=== PATIENT | male | born 1980 | race Caucasian/White ===

== ENCOUNTER 2018-02-06 06:58 | Outpatient (CLI) | payer BC ==
--- NOTE | 2018-02-06 08:45 | ULT ---
ABDOMINAL ULTRASUND: HISTORY: Elevated liver function tests. Hepatitis. FINDINGS: The patient is post cholecystectomy. The liver is echogenic consistent with medical hepatic disease and/or fatty infiltration. Liver size is prominent measuring up to 18 cm. The common bile duct is within normal range. The visualized ab dominal aorta and IVC appear unremarkable. Pancreas is partially imaged and appears unremarkable as visualized. Both kidneys are imaged and appear unremarkable. IMPRESSION: 1. Borderline hepatomegaly. 2. Increased hepatic echogenicity. 3. Post cholecystectomy. POS: [facility]
== END 2018-02-06 06:59 | disposition home or self-care (01) ==
LOC: SCSULT 06:58
PROVIDERS: ATTEND Family Medicine
DX: K75.9 Inflammatory liver disease, unspecified (principal); R11.2 Nausea with vomiting, unspecified; E78.1 Pure hyperglyceridemia; R79.89 Other specified abnormal findings of blood chemistry; R73.09 Other abnormal glucose; K76.9 Liver disease, unspecified; Z90.49 Acquired absence of other specified parts of digestive tract; R16.0 Hepatomegaly, not elsewhere classified
CPT/HCPCS: 76700

== ENCOUNTER 2022-01-26 12:07 | Inpatient (IN) | payer OTHER ==
[~2022-01-26 12:07] MED LIST: Iopamidol-370 76% 500 ML 1 ML ONE
[2022-01-26 12:53] LABS: #Eosinphils 0.1 thou/uL (0.0-0.7); #Lymphocytes 2.6 thou/uL (1.20-3.40); #Monocytes 1.4 thou/uL (0.11-0.59); #Neutrophils 9.8 thou/uL (1.40-6.50); %Basophils 0.1 % (0.0-1.0); %Eosinophils 0.4 % (0.0-10.0); %Lymphocytes 18.8 % (21.0-51.0); %Monocytes 9.8 % (0.0-10.0); %Neutrophils 70.9 % (42.0-75.0); Hemoglobin 12.1 g/dL (14.0-18.0); Mean Corpuscular HGB CONC 32.3 g/dL (32.0-36.0); Mean Corpuscular Hemoglobin 27.2 pg (27.0-31.0); Mean Corpuscular Volume 84.2 fL (78.0-98.0); Mean Platelet Volume 7.5 fL (7.4-10.4); Platelet Count 616 thou/uL (130-400); RBC Distribution Width 12.1 % (11.5-14.5); Red Blood Cell (RBC) Count 4.44 mill/uL (4.70-6.10); White Blood Cell (WBC) Count 13.9 thou/uL (4.8-10.8)
[2022-01-26] MEDS ORDERED: Acetaminophen 500 MG TAB ONE (13:07)
[2022-01-26 13:15] LABS: ALT (SGPT) 37 U/L (8-55); AST (SGOT) 41 U/L (5-34); Albumin 3.6 g/dL (3.5-5.0); Alkaline Phosphatase 119 U/L (40-110); Anion Gap 17 mmol/L (10-20); BUN (Urea Nitrogen) 8 mg/dL (8.9-20.6); Bilirubin, Total 0.6 mg/dL (0.2-1.2); Calc. Creatinine Clearance 0 mL/min (70-130); Calcium 9.4 mg/dL (7.8-10.44); Carbon Dioxide 22 mmol/L (22-29); Chloride 100 mmol/L (98-107); Estimated GFR 111; Globulin 4.1 g/dL (2.4-3.5); Glucose 122 mg/dL (70-105); Potassium 3.6 mmol/L (3.5-5.1); Protein, Total 7.7 g/dL (6.0-8.3); Sodium 135 mmol/L (136-145)
[2022-01-26 14:09] LABS: SARS-CoV-2 NAA Rapid Test Not Detected (NotDetected)
[2022-01-26] MEDS ORDERED: Vancomycin 1 GM/200 ML BAG ONE (14:32)
[2022-01-26] MEDS ORDERED: Cefepime 2 GM VIAL ONE (14:32)
[2022-01-26 15:26] LABS: Bilirubin Negative (Negative); Blood, Urine Negative (Negative); Clarity Clear (Clear); Glucose, Urine (Dipstick) Normal (Negative); Ketone, Urine Negative (Negative); Leukocyte Negative Leu/uL (Negative); Nitrite Negative (Negative); Protein, Urine (Dipstick) 20 mg/dL (Neg-Trace)
[2022-01-26 15:31] LABS: Specific Gravity, Urine 1.054 (1.002-1.036)
[2022-01-26] MEDS ORDERED: Acetaminophen 500 MG TAB PO PRN (15:49)
[2022-01-26] MEDS ORDERED: traMADol HCl 50 MG TAB PO PRN (16:42)
[2022-01-26] MEDS ORDERED: Meropenem 1 GM in Sodium Chloride 0.9% 100 ML IVPB SCH (17:00)
[2022-01-26 17:50] VITALS: BMI 37.2
[2022-01-26] MEDS: Lactated Ringer's 1,000 ML IV SCH (17:58)
[2022-01-26] MEDS: Gabapentin 300 MG CAP PO SCH (21:04)
[2022-01-26] MEDS: Mirtazapine 30 MG TAB PO SCH (21:05)
[2022-01-26] MEDS: Enoxaparin Sodium 40 MG/0.4 ML SYRINGE SC SCH (21:05)
[2022-01-26] MEDS: Famotidine 20 MG TAB PO SCH (21:05)
[2022-01-26] MEDS ORDERED: Meropenem 2 GM in Sodium Chloride 0.9% 100 ML IVPB SCH (22:00)
[2022-01-27] MEDS: Meropenem 1 GM in Sodium Chloride 0.9% 100 ML IVPB SCH ×3 (00:32→18:16)
[2022-01-27] MEDS: Lactated Ringer's 1,000 ML IV SCH ×3 (03:13→23:09)
[2022-01-27] MEDS ORDERED: Bupivacaine/Epinephrine 0.25% 30 ML VIAL ONE (06:46)
[2022-01-27] MEDS ORDERED: Midazolam HCl 2 mg/2 ml Vial ONE (06:52)
[2022-01-27] MEDS ORDERED: fentaNYL Citrate/PF 100 MCG/2 ML SYRINGE ONE (06:52)
[2022-01-27] MEDS ORDERED: Rocuronium Bromide 10 MG/ML (10ML VIAL) ONE (07:33)
[2022-01-27] MEDS ORDERED: PROPOFOL 200 MG/20 ML VIAL ONE (07:33)
[2022-01-27] MEDS ORDERED: Succinylcholine 200 MG/10 ml SYRINGE FS ONE (07:33)
[2022-01-27] MEDS ORDERED: Glycopyrrolate 0.2 MG/ML 5 ML SYRINGE ONE (07:33)
[2022-01-27] MEDS ORDERED: Ondansetron PF 4 MG/2 ML Vial ONE (07:33)
[2022-01-27] MEDS ORDERED: Lidocaine 1% PF 5 ML VIAL ONE (07:33)
[2022-01-27] MEDS ORDERED: Dexamethasone 20 MG/5 ML VIAL ONE (07:33)
[2022-01-27] MEDS ORDERED: Neostigmine Methylsulfate 3 MG/3 ML SYRINGE ONE (07:33)
[2022-01-27] MEDS ORDERED: Gabapentin 300 MG CAP PO SCH (09:00)
[2022-01-27] MEDS ORDERED: SUGAMMADEX SODIUM 200 MG/2 ML VIAL ONE (11:40)
[2022-01-27] MEDS ORDERED: Fentanyl 100 MCG/2 ML VIAL ONE ×2 (12:02→13:14)
[2022-01-27] MEDS ORDERED: Ondansetron HCl/PF 4 MG/2 ML Vial IVP PRN (12:05)
[2022-01-27] MEDS ORDERED: Promethazine HCl 25 MG/ML VIAL IM PRN ×2 (12:05→12:32)
[2022-01-27] MEDS ORDERED: Promethazine HCl 25 MG/ML VIAL IVPB PRN (12:05)
[2022-01-27] MEDS ORDERED: Promethazine HCl 25 MG/ML VIAL ONE (12:09)
[2022-01-27] MEDS ORDERED: Ondansetron PF 4 MG/2 ML Vial IVP PRN ×2 (12:32→12:44)
[2022-01-27] MEDS ORDERED: fentaNYL Citrate/PF 2,000 MCG in Sodium Chloride 0.9% 60 ML IV PRN (12:32)
[2022-01-27] MEDS ORDERED: diphenhydrAMINE 25 MG CAP PO PRN (12:32)
[2022-01-27] MEDS ORDERED: Zolpidem Tartrate 5 MG TAB PO PRN (12:32)
[2022-01-27] MEDS ORDERED: diphenhydrAMINE 50 MG/ML VIAL IVP PRN (12:32)
[2022-01-27] MEDS ORDERED: diphenhydrAMINE 50 MG/ML VIAL IM PRN (12:32)
[2022-01-27] MEDS ORDERED: Naloxone HCl 0.4 mg/ml Vial IV PRN (12:32)
[2022-01-27] MEDS ORDERED: Fentanyl 100 MCG/2 ML VIAL SLOW IVP PRN (12:44)
[2022-01-27] MEDS ORDERED: Communication Order-Pharmacy FS SCH (12:45)
[2022-01-27 14:26] LABS: Hemoglobin 10.7 g/dL (14.0-18.0); Platelet Count 575 thou/uL (130-400)
[2022-01-27] MEDS: Escitalopram Oxalate 20 mg Tablet PO SCH (14:42)
[2022-01-27] MEDS: Famotidine 20 MG TAB PO SCH ×2 (14:42→20:58)
[2022-01-27] MEDS: Polyethylene Glycol 3350 17 GM Packet PO SCH (14:42)
[2022-01-27] MEDS: HYDROcodone/Acetaminophen 5/325 mg Tablet PO PRN (19:28)
[2022-01-27] MEDS: Gabapentin 300 MG CAP PO SCH (20:56)
[2022-01-27] MEDS: Mirtazapine 30 MG TAB PO SCH (20:56)
[2022-01-27] MEDS: Enoxaparin Sodium 40 MG/0.4 ML SYRINGE SC SCH (20:57)
[2022-01-28] MEDS: HYDROcodone/Acetaminophen 5/325 mg Tablet PO PRN ×5 (00:59→19:14)
[2022-01-28] MEDS: Meropenem 1 GM in Sodium Chloride 0.9% 100 ML IVPB SCH ×3 (01:18→19:15)
[2022-01-28 03:55] LABS: #Lymphocytes 2.2 thou/uL (1.20-3.40); #Monocytes 1.5 thou/uL (0.11-0.59); #Neutrophils 15.3 thou/uL (1.40-6.50); %Eosinophils 0.1 % (0.0-10.0); %Lymphocytes 11.7 % (21.0-51.0); %Monocytes 7.7 % (0.0-10.0); %Neutrophils 80.5 % (42.0-75.0); Hemoglobin 9.8 g/dL (14.0-18.0); Mean Corpuscular Hemoglobin 27.9 pg (27.0-31.0); Mean Platelet Volume 7.7 fL (7.4-10.4); Platelet Count 563 thou/uL (130-400); RBC Distribution Width 12.3 % (11.5-14.5); Red Blood Cell (RBC) Count 3.52 mill/uL (4.70-6.10)
[2022-01-28 04:14] LABS: Anion Gap 14 mmol/L (10-20); BUN (Urea Nitrogen) 8 mg/dL (8.9-20.6); Calc. Creatinine Clearance 274 mL/min (70-130); Calcium 8.7 mg/dL (7.8-10.44); Carbon Dioxide 24 mmol/L (22-29); Chloride 103 mmol/L (98-107); Estimated GFR 120; Glucose 135 mg/dL (70-105); Potassium 3.9 mmol/L (3.5-5.1); Sodium 137 mmol/L (136-145)
[2022-01-28] MEDS: Lactated Ringer's 1,000 ML IV SCH ×2 (06:18→11:21)
[2022-01-28] MEDS: Polyethylene Glycol 3350 17 GM Packet PO SCH (08:36)
[2022-01-28] MEDS: Famotidine 20 MG TAB PO SCH ×2 (08:37→20:30)
[2022-01-28] MEDS: Escitalopram Oxalate 20 mg Tablet PO SCH (08:37)
[2022-01-28] MEDS ORDERED: Vancomycin 1 GM in Premix Bag 1 BAG IVPB SCH ×2 (13:42→17:00)
[2022-01-28] MEDS: Gabapentin 300 MG CAP PO SCH (20:29)
[2022-01-28] MEDS: Mirtazapine 30 MG TAB PO SCH (20:30)
[2022-01-28] MEDS: Enoxaparin Sodium 40 MG/0.4 ML SYRINGE SC SCH (20:30)
[2022-01-29] MEDS: Meropenem 1 GM in Sodium Chloride 0.9% 100 ML IVPB SCH ×3 (00:29→18:19)
[2022-01-29] MEDS: VANCOMYCIN 2 GRAM/500 ML BAG 2 GM in Premix Bag 1 BAG IVPB SCH ×2 (04:20→10:58)
[2022-01-29] MEDS: Lactated Ringer's 1,000 ML IV SCH (06:17)
[2022-01-29] MEDS: Escitalopram Oxalate 20 mg Tablet PO SCH (09:33)
[2022-01-29] MEDS: Polyethylene Glycol 3350 17 GM Packet PO SCH (09:33)
[2022-01-29] MEDS: Famotidine 20 MG TAB PO SCH ×2 (09:33→21:53)
[2022-01-29 09:37] LABS: Band 2 % (5-11); Lymphocytes 12 % (21-51); MDiff Complete? YES; Mean Corpuscular HGB CONC 31.9 g/dL (32.0-36.0); Mean Corpuscular Hemoglobin 27.2 pg (27.0-31.0); Mean Corpuscular Volume 85.3 fL (78.0-98.0); Mean Platelet Volume 7.4 fL (7.4-10.4); Monocytes 4 % (0-10); Neutrophil 81 % (42-75); Platelet Count 558 thou/uL (130-400); Platelet Morphology Comment Appears Increased; RBC Distribution Width 12.4 % (11.5-14.5); RBC Morphology Normal; Reactive Lymphocytes 1 % (0-10); Red Blood Cell (RBC) Count 3.31 mill/uL (4.70-6.10); White Blood Cell (WBC) Count 15.1 thou/uL (4.8-10.8)
[2022-01-29] MEDS: Mirtazapine 30 MG TAB PO SCH (21:54)
[2022-01-29] MEDS: Gabapentin 300 MG CAP PO SCH (21:54)
[2022-01-29] MEDS: Enoxaparin Sodium 40 MG/0.4 ML SYRINGE SC SCH (21:54)
[2022-01-30] MEDS: Meropenem 1 GM in Sodium Chloride 0.9% 100 ML IVPB SCH ×3 (00:25→17:48)
[2022-01-30] MEDS: Lactated Ringer's 1,000 ML IV SCH ×2 (03:16→23:59)
[2022-01-30 06:03] LABS: #Basophils 0.1 thou/uL (0.0-0.2); #Eosinphils 0.3 thou/uL (0.0-0.7); #Lymphocytes 2.8 thou/uL (1.20-3.40); #Monocytes 1.2 thou/uL (0.11-0.59); #Neutrophils 10.1 thou/uL (1.40-6.50); %Basophils 0.4 % (0.0-1.0); %Eosinophils 1.9 % (0.0-10.0); %Lymphocytes 19.3 % (21.0-51.0); %Monocytes 8.5 % (0.0-10.0); Mean Corpuscular HGB CONC 32.3 g/dL (32.0-36.0); Mean Corpuscular Hemoglobin 27.8 pg (27.0-31.0); Mean Corpuscular Volume 86.1 fL (78.0-98.0); Mean Platelet Volume 7.5 fL (7.4-10.4); Platelet Count 528 thou/uL (130-400); RBC Distribution Width 12.4 % (11.5-14.5); Red Blood Cell (RBC) Count 3.23 mill/uL (4.70-6.10); White Blood Cell (WBC) Count 14.5 thou/uL (4.8-10.8)
[2022-01-30 06:27] LABS: Anion Gap 14 mmol/L (10-20); BUN (Urea Nitrogen) 7 mg/dL (8.9-20.6); Calc. Creatinine Clearance 294 mL/min (70-130); Calcium 8.6 mg/dL (7.8-10.44); Carbon Dioxide 28 mmol/L (22-29); Chloride 101 mmol/L (98-107); Estimated GFR 123; Glucose 106 mg/dL (70-105); Potassium 3.5 mmol/L (3.5-5.1); Sodium 139 mmol/L (136-145)
[2022-01-30] MEDS ORDERED: Potassium Chloride 20 MEQ TAB PO SCH (08:00)
[2022-01-30] MEDS: Famotidine 20 MG TAB PO SCH ×2 (08:34→21:35)
[2022-01-30] MEDS: Escitalopram Oxalate 20 mg Tablet PO SCH (08:35)
[2022-01-30] MEDS: Polyethylene Glycol 3350 17 GM Packet PO SCH (08:37)
[2022-01-30 09:43] LABS: Actual Bicarbonate (HCO3v) 22 mEq/L (22-28); Analyzer IN Cardio OR; Base Excess -3.6 mEq/L (-2.0 to +3.0); Calcium, Ionized (venous) 1.11 mmol/L (1.16-1.32); Chloride (VBG) 105 mmol/L (98-106); Hemoglobin (Hb) 11.4 g/dL (13.2-17.3); Potassium (VBG) 4.46 mmol/L (3.70-5.30); pH (venous) 7.34 (7.32-7.43)
[2022-01-30 09:43] LABS: Actual Bicarbonate (HCO3a) 20.6 mEq/L (22-28); Analyzer IN Cardio OR; CO2 Tension 35.4 mmHg (35.0-45.0); Calcium, Ionized (arterial) 1.08 mmol/L (1.12-1.30); Carboxyhemoglobin (COHb) 0.2 gm% (0.0-3.0); Hemoglobin (Hb) 10.3 g/dL (14.0-18.0); O2 Tension (PaO2), arterial 85.6 mmHg (80.0-100.0); Potassium - ABG Lab 4.12 mmol/L (3.70-5.30); pH, Arterial 7.38 (7.35-7.45)
[2022-01-30 09:45] LABS: Puncture Site Arterial Line
[2022-01-30] MEDS: HYDROcodone/Acetaminophen 5/325 mg Tablet PO PRN ×2 (12:52→17:47)
[2022-01-30] MEDS: Ferrous Sulfate 325 MG TAB PO SCH (17:47)
[2022-01-30] MEDS: Gabapentin 300 MG CAP PO SCH (21:34)
[2022-01-30] MEDS: Enoxaparin Sodium 40 MG/0.4 ML SYRINGE SC SCH (21:34)
[2022-01-30] MEDS: Mirtazapine 30 MG TAB PO SCH (21:35)
[2022-01-31] MEDS: Meropenem 1 GM in Sodium Chloride 0.9% 100 ML IVPB SCH (00:01)
[2022-01-31] MEDS: HYDROcodone/Acetaminophen 5/325 mg Tablet PO PRN ×4 (00:05→20:24)
[2022-01-31 05:37] LABS: #Eosinphils 0.4 thou/uL (0.0-0.7); #Lymphocytes 2.9 thou/uL (1.20-3.40); #Monocytes 1.1 thou/uL (0.11-0.59); %Basophils 0.3 % (0.0-1.0); %Eosinophils 3.8 % (0.0-10.0); %Lymphocytes 25.4 % (21.0-51.0); %Monocytes 9.7 % (0.0-10.0); %Neutrophils 60.9 % (42.0-75.0); Mean Corpuscular HGB CONC 31.7 g/dL (32.0-36.0); Mean Corpuscular Hemoglobin 27.6 pg (27.0-31.0); Mean Platelet Volume 7.5 fL (7.4-10.4); Platelet Count 549 thou/uL (130-400); RBC Distribution Width 12.6 % (11.5-14.5); Red Blood Cell (RBC) Count 3.63 mill/uL (4.70-6.10); White Blood Cell (WBC) Count 11.4 thou/uL (4.8-10.8)
[2022-01-31 05:57] LABS: Anion Gap 17 mmol/L (10-20); BUN (Urea Nitrogen) 9 mg/dL (8.9-20.6); Calc. Creatinine Clearance 311 mL/min (70-130); Calcium 8.9 mg/dL (7.8-10.44); Carbon Dioxide 24 mmol/L (22-29); Chloride 102 mmol/L (98-107); Estimated GFR 123; Glucose 90 mg/dL (70-105); Potassium 3.7 mmol/L (3.5-5.1); Sodium 139 mmol/L (136-145)
[2022-01-31] MEDS: Famotidine 20 MG TAB PO SCH ×2 (08:25→20:24)
[2022-01-31] MEDS: Ferrous Sulfate 325 MG TAB PO SCH ×2 (08:25→15:29)
[2022-01-31] MEDS: Polyethylene Glycol 3350 17 GM Packet PO SCH (08:25)
[2022-01-31] MEDS: metroNIDAZOLE 250 MG TAB PO SCH ×3 (08:25→20:24)
[2022-01-31] MEDS: Escitalopram Oxalate 20 mg Tablet PO SCH (08:25)
[2022-01-31] MEDS: Mirtazapine 30 MG TAB PO SCH (20:23)
[2022-01-31] MEDS: Enoxaparin Sodium 40 MG/0.4 ML SYRINGE SC SCH (20:23)
[2022-01-31] MEDS: Gabapentin 300 MG CAP PO SCH (20:24)
[2022-02-01] MEDS: HYDROcodone/Acetaminophen 5/325 mg Tablet PO PRN (05:24)
[2022-02-01 05:55] LABS: #Eosinphils 0.3 thou/uL (0.0-0.7); #Lymphocytes 2.6 thou/uL (1.20-3.40); #Monocytes 1.1 thou/uL (0.11-0.59); %Basophils 0.1 % (0.0-1.0); %Eosinophils 3.3 % (0.0-10.0); %Lymphocytes 25.7 % (21.0-51.0); %Monocytes 10.6 % (0.0-10.0); %Neutrophils 60.2 % (42.0-75.0); Hemoglobin 9.4 g/dL (14.0-18.0); Mean Corpuscular HGB CONC 31.6 g/dL (32.0-36.0); Mean Corpuscular Hemoglobin 27.1 pg (27.0-31.0); Mean Corpuscular Volume 85.9 fL (78.0-98.0); Mean Platelet Volume 7.4 fL (7.4-10.4); Platelet Count 561 thou/uL (130-400); RBC Distribution Width 12.8 % (11.5-14.5); Red Blood Cell (RBC) Count 3.48 mill/uL (4.70-6.10)
[2022-02-01 06:18] LABS: Anion Gap 15 mmol/L (10-20); BUN (Urea Nitrogen) 8 mg/dL (8.9-20.6); Calc. Creatinine Clearance 291 mL/min (70-130); Calcium 8.9 mg/dL (7.8-10.44); Carbon Dioxide 28 mmol/L (22-29); Chloride 100 mmol/L (98-107); Estimated GFR 121; Glucose 96 mg/dL (70-105); Potassium 3.6 mmol/L (3.5-5.1); Sodium 139 mmol/L (136-145)
[2022-02-01] MEDS: Ferrous Sulfate 325 MG TAB PO SCH (08:11)
[2022-02-01] MEDS: Escitalopram Oxalate 20 mg Tablet PO SCH (08:12)
[2022-02-01] MEDS: Famotidine 20 MG TAB PO SCH (08:12)
[2022-02-01] MEDS: metroNIDAZOLE 250 MG TAB PO SCH (08:12)
[2022-02-01] MEDS: Polyethylene Glycol 3350 17 GM Packet PO SCH (08:12)
[2022-02-01 12:15] VITALS: BP 115/76; TEMP 98.2
== END 2022-02-01 13:21 | disposition home or self-care (01) | DRG 853 ==
LOC: ERS 12:07 → SJJU 17:14 → IMCU/EMU 01-27 14:20 → SURG B 01-28 19:52
PROVIDERS: ADMIT Internal Medicine Geriatric Medicine; ATTEND Internal Medicine Geriatric Medicine
PROC: 3E03329 Introduction of Other Anti-infective into Peripheral Vein, Percutaneous Approach (ICD-10-PCS; 2022-01-26)
PROC: 0BNL0ZZ Release Left Lung, Open Approach (ICD-10-PCS; principal; 2022-01-27)
DX: A41.9 Sepsis, unspecified organism (principal); J86.9 Pyothorax without fistula; J18.9 Pneumonia, unspecified organism; J91.8 Pleural effusion in other conditions classified elsewhere; Z20.822 Contact with and (suspected) exposure to COVID-19; E16.2 Hypoglycemia, unspecified; F41.9 Anxiety disorder, unspecified; F32.A Depression, unspecified; F10.20 Alcohol dependence, uncomplicated; E66.9 Obesity, unspecified; R73.9 Hyperglycemia, unspecified; D64.9 Anemia, unspecified; K21.9 Gastro-esophageal reflux disease without esophagitis; Z90.49 Acquired absence of other specified parts of digestive tract; Z88.0 Allergy status to penicillin; Z88.2 Allergy status to sulfonamides; Z79.899 Other long term (current) drug therapy; Z88.1 Allergy status to other antibiotic agents; Z68.37 Body mass index [BMI] 37.0-37.9, adult
CPT/HCPCS: 36415; 36430; 71045; 71275; 80048; 81003; 82805; 83605; 85014; 85018; 85025; 85049; 85379; 86850; 86900; 86901; 87040; 87070; 87205; 87804; 88305; 93005; 96361; 96365; 96366; 96367; J0692; J1100; J1650; J2185; J2250; J2405; J2550; J2704; J3010; J3370; J3490; J7120; J7620; Q9967; U0002

== ENCOUNTER 2022-02-22 11:56 | Outpatient (CLI) | payer OTHER | END 2022-02-22 11:57 | disposition home or self-care (01) | LOC: BICRAD 11:56 | PROVIDERS: ATTEND Thoracic Surgery (Cardiothoracic Vascular Surgery) | DX: J86.9 Pyothorax without fistula (principal) | CPT/HCPCS: 71046 ==